=== PATIENT | female | born 1955 | race Caucasian/White ===

== ENCOUNTER 2016-07-19 12:51 | Day surgery (SDC) | payer OTHER ==
[~2016-07-19] VITALS: Ht 157.5 cm; Wt 85.1 kg
[2016-07-19 14:56] VITALS: Ht 157.5 cm; Wt 85.1 kg
[2016-07-19] MEDS ORDERED: AMLO-218 PO (15:06)
[2016-07-19] MEDS ORDERED: ATOR20TA38 PO (15:06)
[2016-07-19] MEDS ORDERED: METF-382 PO (15:06)
[2016-07-19] MEDS ORDERED: LOSA100T7 PO (15:06)
[2016-07-19] MEDS ORDERED: METO50TA16 PO (15:06)
[2016-07-19] MEDS ORDERED: INSU100I7 SQ (15:06)
[2016-07-19] MEDS ORDERED: ASPI81TA3 PO (15:06)
[2016-07-19 16:22] VITALS: BP 137/64; PULSE 58; RESP 18
[2016-07-19] MEDS ORDERED: PROPOFOL 20 ML ONE (16:35)
[2016-07-19] MEDS ORDERED: FENTAnyl 50 MCG/ML VIAL ONE (16:35)
[2016-07-19 17:11] VITALS: BP 131/72; PULSE 60; RESP 18
--- NOTE | 2016-07-20 06:13 | GILP ---
DATE OF PROCEDURE: 07/19/2016 PROCEDURE: Esophagogastroduodenoscopy with biopsies. BRIEF HISTORY AND INDICATIONS: The patient is being evaluated for dysphagia. PREMEDICATION: Monitored anesthesia care by anesthesiologist. SURGEON: KLAUS ORTIZ INSTRUMENT USED: Olympus panendoscope. TECHNIQUE: After informed consent, with the patient/relatives understanding the procedure, its indic ations, potential risks and complications, including but not limited to: allergic reaction, bleeding , perforation or infection, and after all pertinent questions were answered to the patients satisfac tion, the patient/relatives signed witnessed informed consent. Following this, premedication was administered slowly IV push under careful cardiovascular and respi ratory monitoring with pulse oximetry, automatic blood pressure and groundwater monitoring technician. Once the sedative effect was achieved the patient was place in the left lateral decubitus, the panen doscope was introduced and advanced under visual control. Careful examination of the upper gastrointestinal tract, both on insertion as well as withdrawal of the instrument disclosed the following findings: ESOPHAGUS: There is significant erythema, edema and erosion of the mucosa of the distal esophagus. Small hiatal hernia is present. STOMACH: Upon entrance to the stomach, air was insufflated. The gastric copeland distended normally. The mucosa of the fundus, body and antrum of the stomach was carefully examined and shows erythema, edema and superficial erosion of the mucosa of the antrum. Biopsies were obtained to rule out H. py ho infection. PYLORUS: The pylorus appears patent and within normal limits, with no evidence of gastric outlet obs truction. DUODENUM: The duodenal mucosa was carefully examined in the duodenal bulb as well as the second port ion of the duodenum and appears unremarkable with no evidence of duodenitis, ulcer or neoplasm. The instrument was then withdrawn, the patient tolerated the procedure well and was transfer out of the endoscopy suite awake, and in good condition to continue recovery under observation IMPRESSION: 1. Severe erosive esophagitis. 2. Small hiatal hernia. 3. Rule out H. pylori infection, biopsies obtained. PLAN: The patient will be treated with PPIs. Further recommendation will depend on her clinical co urse as well as review of biopsies. Dictated By: KLAUS ORTIZ MS/YOAN Conf#: [id number] DID#: [id number]
== END 2016-07-19 18:03 | disposition home or self-care (01) ==
LOC: GIL 12:51
PROVIDERS: ATTEND Internal Medicine Gastroenterology
DX: K29.50 Unspecified chronic gastritis without bleeding (principal); K20.8 Other esophagitis; K44.9 Diaphragmatic hernia without obstruction or gangrene; I10 Essential (primary) hypertension; E11.9 Type 2 diabetes mellitus without complications; E78.5 Hyperlipidemia, unspecified
CPT/HCPCS: 43239; 82962; 88305; 88312; J3010; Z7610

== ENCOUNTER 2016-12-30 12:31 | Day surgery (SDC) | payer OTHER ==
[~2016-12-30] VITALS: Ht 160 cm; Wt 82.6 kg
[~2016-12-30 12:31] MED LIST: AMLO-218 PO; ASPI81TA3 PO; ATOR20TA38 PO; INSU100I7 SQ; LOSA100T7 PO; METF500T4 PO; METO-319 PO
[2016-12-30 13:24] VITALS: Ht 160 cm; Wt 82.6 kg
[2016-12-30] MEDS ORDERED: PROTONIX (13:31)
[2016-12-30] MEDS ORDERED: INSULIN (13:31)
[2016-12-30 14:12] VITALS: BP 120/60; PULSE 56; RESP 18
[2016-12-30] MEDS ORDERED: PROPOFOL 60 ML ONE (14:58)
[2016-12-30] MEDS ORDERED: LIDOCAINE 2% (SDV) 5 ML INJ ONE (14:58)
--- NOTE | 2016-12-30 15:27 | OPPN ---
Date/Time of Note Date/Time of Note DATE: 12/30/16 TIME: 15:22 Proc Note GI Procedure Date 12/30/16 Pre-procedure Diagnosis * Colorectal cancer screening Post-procedure Diagnosis Assessment: * 3 mm polyp transverse colon. Ablated * 2 small polyps in the sigmoid colon 3 and 4 mm. Ablated * 3 mm rectal polyp. Ablated * Moderate-sized internal hemorrhoids Plan: * Review pathology as soon as available * Follow-up as previously scheduled * Annual Hemoccult stool testing * Surveillance colonoscopy in 5 years Procedure Performed: Colonoscopy (Ablation) Surgeon see signature line [employer] Worker none Anesthesia Type: MAC Anesthesiologist: TAVON ARCE MD EBL none Transfusion required none Biopsy 1: Transverse colon polyp Biopsy 2: Rectal polyp Biopsy 3: Sigmoid polyp (2) Grafts/Implants none Complication(s) none Pt Condition post procedure: stable Disposition: home Indications: screening/surveillance Procedure Description After informed consent, with the patient/relatives understanding the procedure, its indications and potential risks and complications, including but not limited to: Allergic reaction, bleeding, perforation, infection, and after all pertinent questions were answered to the patient's satisfaction, the patient/ relatives signed the witnessed informed consent. Following this, premedication was administered slowly IV push under careful cardiovascular and respiratory monitoring with pulse OXIMETRY, automatic blood pressure, and groundwater monitoring technician. Once the sedative effect was achieved, the patient was placed in the left lateral decubitus position, digital rectal examination was performed. The colonoscope was then introduced and advanced under visual control throughout all segments of the colon including: the rectum, sigmoid, descending colon, splenic flexure, transverse colon, hepatic flexure, ascending colon and finally reaching the cecum which was clearly identified by transillumination, finger indentation and the ileocecal valve. Careful examination of the mucosa of the lower gastrointestinal tract both on insertion as well as withdrawal of the instrument disclosed the following findings: PREPARATION QUALITY: [Adequate], RECTAL EXAM: The anorectal area was visualized examined and digital rectal examination performed with the following findings: No evidence of perirectal disease, no masses. COLONIC MUCOSA: The mucosa of all segments of the colon was carefully examined and showed the following findings: There is a 3 mm polyp in transverse colon. Ablated. 2 small 3-4 mm polyps were noted in the sigmoid colon. Ablated. A 3 mm polyp was noted in the rectum. Ablated. Otherwise the examined mucosa appears within normal limits. There is no evidence of inflammatory changes, diverticular formation, polyps or other neoplasms, vascular malformation, or any other abnormality. Moderate- sized internal hemorrhoids The instrument was then withdrawn, the patient tolerated the procedure well and was transferred out of the Endoscopy Suite awake and in good condition to continue recovery under observation. Copies To: CC: KLAUS ORTIZ MD, MORDO MD Dec 30, 2016 15:27
[2016-12-30 15:55] VITALS: PULSE 60; RESP 14
[2016-12-30 15:56] VITALS: BP 143/77
== END 2016-12-30 18:55 | disposition home or self-care (01) ==
LOC: GIL 12:31
PROVIDERS: ATTEND Internal Medicine Gastroenterology
DX: Z12.11 Encounter for screening for malignant neoplasm of colon (principal); D12.5 Benign neoplasm of sigmoid colon; D12.3 Benign neoplasm of transverse colon; K62.1 Rectal polyp; K64.8 Other hemorrhoids; I10 Essential (primary) hypertension; E11.9 Type 2 diabetes mellitus without complications; E78.5 Hyperlipidemia, unspecified; E66.9 Obesity, unspecified; Z68.32 Body mass index [BMI] 32.0-32.9, adult
CPT/HCPCS: 45380; 82962; 88305; Z7610